=== PATIENT | male | born 1950 | race Caucasian/White ===

== ENCOUNTER 2020-12-15 05:33 | Inpatient (IN) ==
[2020-12-15] MEDS ORDERED: ceFAZolin 1,000 MG VIAL ONE (06:00)
[2020-12-15] MEDS: LACTATED RINGERS 1,000 ML IV SCH ×2 (06:19→08:31)
[2020-12-15] MEDS ORDERED: KETAMINE 500 MG/10 ML VIAL ONE (06:23)
[2020-12-15] MEDS ORDERED: DEXMEDETOMIDINE 200 MCG/2 ML VIAL ONE (06:23)
[2020-12-15] MEDS ORDERED: HYDROmorphone 2 MG/1 ML VIAL ONE (06:28)
[2020-12-15] MEDS ORDERED: DEXAMETHASONE 4 MG/1 ML VIAL ONE (06:30)
[2020-12-15] MEDS ORDERED: VANCOMYCIN INJ 1,000 MG in SODIUM CHLORIDE 0.9% 250 ML IV ONE (06:30)
[2020-12-15] MEDS ORDERED: EPINEPHrine 1 MG/ML VIAL ONE (06:30)
[2020-12-15] MEDS ORDERED: BUPIVACAINE 0.5% 50 ML VIAL ONE (06:31)
[2020-12-15] MEDS ORDERED: DIAZEPAM 5 MG TABLET ONE (06:39)
[2020-12-15] MEDS ORDERED: DIAZEPAM 5 MG TABLET PO ONE (06:39)
[2020-12-15] MEDS ORDERED: ACETAMINOPHEN 500 MG TABLET PO ONE (06:39)
[2020-12-15] MEDS ORDERED: GABAPENTIN 400 MG CAPSULE ONE (06:39)
[2020-12-15] MEDS ORDERED: FAMOTIDINE 20 MG TABLET PO ONE (06:39)
[2020-12-15] MEDS ORDERED: GABAPENTIN 400 MG CAPSULE PO ONE (06:39)
[2020-12-15] MEDS ORDERED: ACETAMINOPHEN 500 MG TABLET ONE (06:39)
[2020-12-15] MEDS ORDERED: diphenhydrAMINE CAP 25 MG CAPSULE PO PRN (07:04)
[2020-12-15] MEDS ORDERED: MORPHINE 4 MG/1 ML VIAL IV PRN ×2 (07:04→13:25)
[2020-12-15] MEDS ORDERED: BISACODYL 10 MG SUPP RECTAL PRN (07:04)
[2020-12-15] MEDS ORDERED: PROMETHAZINE 25 MG/1 ML VIAL IM PRN (07:04)
[2020-12-15] MEDS ORDERED: ONDANSETRON 4 MG/2 ML VIAL IV PRN (07:04)
[2020-12-15] MEDS ORDERED: MAGNESIUM HYDROXIDE SUSP 30 ML UDCUP PO PRN (07:04)
[2020-12-15] MEDS ORDERED: TEMAZEPAM 7.5 MG CAPSULE PO PRN (07:04)
[2020-12-15] MEDS ORDERED: LACTULOSE 20 GM/30 ML UDCUP PO PRN (07:04)
[2020-12-15] MEDS ORDERED: ceFAZolin 1,000 MG in SYRINGE 1 EACH IV ONE (07:30)
[2020-12-15] MEDS ORDERED: LACTATED RINGERS 1,000 ML IV ONE (08:00)
[2020-12-15] MEDS ORDERED: MIDAZOLAM 2 MG/2 ML VIAL ONE (08:00)
[2020-12-15] MEDS ORDERED: TRANEXAMIC ACID 1,000 MG/10 ML VIAL ONE (08:05)
[2020-12-15] MEDS: ceFAZolin 2,000 MG in PREMIX 1 EACH IV SCH ×2 (14:51→21:01)
[2020-12-15] MEDS: DOCUSATE SODIUM 100 MG CAPSULE PO SCH (20:58)
[2020-12-15] MEDS: FONDAPARINUX 2.5 MG/0.5 ML SYRINGE SUBCUT SCH (20:59)
[2020-12-16 06:17] LABS: Basophils % 0.1 % (0.0-0.8); Eosinophils % 0.1 % (0.00-10.9); Hematocrit 34.7 VOL% (42.0-52.0); Hemoglobin 11.7 GM/DL (14.0-18.0); Immature Granulocytes % 0.5 %; Immature Granulocytes Absolute 0.04 #; Lymphocytes # 1.3 10*3/uL (1.4-4.0); Lymphocytes % 14.7 % (21.2-54.2); Mean Corpuscular HGB Conc 33.7 GM/DL (32-36); Mean Corpuscular Volume 94.8 FL (87-102); Mean Platelet Volume 9.1 FL (9.6-12.0); Monocytes % 8.5 % (1.7-12.7); Neutrophils % 76.1 % (38.7-73.9); Platelet Count 200 T/CUMM (130-400); Red Blood Count 3.66 MC/CUMM (3.8-5.5); Red Cell Distribution Width 13.2 % (9.3-17.3); White Blood Count 8.9 T/CUMM (4-12)
[2020-12-16 06:21] LABS: Calcium 8.2 MG/DL (8.5-10.1); Osmolality,Calculated 283.1 MOS/KG (273-304); Potassium 3.9 MMOL/L (3.5-5.1)
[2020-12-16] MEDS: DOCUSATE SODIUM 100 MG CAPSULE PO SCH ×2 (10:29→20:46)
[2020-12-16] MEDS: FONDAPARINUX 2.5 MG/0.5 ML SYRINGE SUBCUT SCH (20:46)
[2020-12-17 08:06] VITALS: BP 127/59
[2020-12-17] MEDS: DOCUSATE SODIUM 100 MG CAPSULE PO SCH (08:55)
== END 2020-12-17 11:07 | disposition home health service (06) | DRG 470 ==
LOC: N.OR 05:33 → N.SDSINP 05:34 → N.3E 13:22
PROVIDERS: ADMIT Orthopaedic Surgery; ATTEND Orthopaedic Surgery